=== PATIENT | female | born 1955 | race Caucasian/White ===

== ENCOUNTER 2025-03-13 18:49 | Emergency (ER) | payer SELFPAY ==
[2025-03-13 18:50] VITALS: BP 164/110
[2025-03-13 20:00] VITALS: BP 144/94
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
== END 2025-03-13 22:15 | disposition home or self-care (01) ==
LOC: EMR 18:49
PROVIDERS: EMERGENCY PHYSICIAN Emergency Medicine; FAMILY PHYSICIAN General Practice
DX: S60.221A Contusion of right hand, initial encounter (principal); V43.52XA Car driver injured in collision with other type car in traffic accident, initial encounter; Y92.410 Unspecified street and highway as the place of occurrence of the external cause; M35.00 Sjogren syndrome, unspecified; I48.91 Unspecified atrial fibrillation
CPT/HCPCS: 99283; 71101; 71120; 93005